=== PATIENT | female | born 1970 | race Caucasian/White ===

== ENCOUNTER → 2017-02-01 | Outpatient (CLI) | payer OTHER ==
[~2017-02-01] MED LIST: EFF375 PO; FLINSTONE VITAMINS PO; IBUP600T44 PO; OXYC-57 PO
== END | disposition home or self-care (01) ==
LOC: C.PAPS 13:41
PROVIDERS: ATTEND Obstetrics & Gynecology
DX: Z12.4 Encounter for screening for malignant neoplasm of cervix (principal)

== ENCOUNTER 2017-09-06 11:08 | Inpatient (IN) | payer OTHER ==
[~2017-09-06] VITALS: Ht 154.9 cm; Wt 98.2 kg
[2017-09-06] MEDS ORDERED: LIFI5DRO OP (12:04)
[2017-09-06] MEDS ORDERED: CLON0.5T3 PO (12:04)
[2017-09-06] MEDS ORDERED: FLUO10CA48 PO (12:04)
[2017-09-06] MEDS ORDERED: BUSP15TA70 PO (12:04)
[2017-09-06] MEDS ORDERED: LTHCR300 PO (12:04)
[2017-09-06 12:36] LABS: URINE APPEARANCE CLEAR (CLEAR); URINE BILIRUBIN NEG (NEG); URINE COLOR YELLOW; URINE NITRITE NEG (NEG); URINE PH 7.5 (4.5-7.5); URINE SPECIFIC GRAVITY 1.007 (1.000-1.030); UROBILINOGEN NEG (NEG)
[2017-09-06 12:41] LABS: MANUAL MICROSCOPIC REQUIRED? NO; REVIEW REQ? NO
[2017-09-06 12:57] LABS: BENZODIAZEPINE, URINE NEG (NEG); COCAINE,URINE NEG (NEG); PHENCYCLIDINE, URINE NEG (NEG)
[2017-09-06 13:08] LABS: BASO % 0.3 %; BASO ABS # 0.03 K/uL (0-0.2); COMPLETE YES; EOS % 1.4 %; HEMATOCRIT 42.6 % (37-47); IG% 0.3 %; LYMPH % 15.9 %; LYMPH ABS # 1.83 K/uL (1.2-3.4); MEAN CELL VOLUME 92.4 fL (80-100); MEAN CORPUSCULAR HEMOGLOBIN 30.2 pg (25-34); MEAN CORPUSCULAR HGB CONC 32.6 g/dl (32-36); MEAN PLATELET VOLUME 9.6 fL (7.4-10.4); MONO % 3.7 %; NEUT % 78.4 %; PLATELET COUNT 366 K/uL (130-400); RED BLOOD COUNT 4.61 M/uL (4.2-5.4); WHITE BLOOD COUNT 11.51 K/uL (4.8-10.8)
[2017-09-06 13:16] LABS: BUN/CREATININE RATIO 10.5 (10-20); CREATININE 0.9 mg/dl (0.60-1.20)
[2017-09-06 13:27] LABS: THYROID STIMULATING HORMONE 4.71 uIu/ml (0.300-4.500)
[2017-09-06 14:13] VITALS: O2SAT 98
[2017-09-06] MEDS ORDERED: LITH1TAB PO (16:32)
[2017-09-06] MEDS ORDERED: MAGNESIUM HYDROXIDE SUSP 30 ML UDC PO PRN (16:45)
[2017-09-06] MEDS ORDERED: ALUMINUM/MAGNESIUM SUSP 30 ML UDC PO PRN (16:45)
[2017-09-06] MEDS ORDERED: CLONAZEPAM 0.5 MG TAB PO PRN (16:45)
[2017-09-06] MEDS ORDERED: SODIUM CHLORIDE 0.65% NA SOLN 45 ML (OCEAN) PRN (16:45)
[2017-09-06] MEDS ORDERED: hydrOXYzine HCL 25 MG TAB PO PRN ×2 (16:45)
[2017-09-06] MEDS ORDERED: BISMUTH SUBSALICYLATE PER ML OMNICELL CHARGE PO PRN (16:45)
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
[2017-09-06 17:47] VITALS: BP 140/87; PULSE 68; TEMP 37; Ht 154.9 cm; Wt 98.2 kg
[2017-09-06] MEDS ORDERED: NURSING VERBAL MED ORDER ONE (18:15)
[2017-09-06] MEDS: LIFITEGRAST OP SCH (20:59)
[2017-09-06] MEDS: BusPIRone 15 MG TAB PO SCH (21:02)
[2017-09-06] MEDS: LITHIUM CARBONATE 450 MG TABCR PO SCH (21:02)
[2017-09-06] MEDS ORDERED: NURSING DECISION MEDICATION ORDER SCH (21:15)
[2017-09-06] MEDS: NITROFURANTOIN MONOHYDRATE 100 MG CAP PO SCH (22:18)
[2017-09-07 06:43] VITALS: BP_SYST 115; BP_SYST 123; BP_DIAS 74; BP_DIAS 79; PULSE 61; PULSE 64; TEMP 36.8
[2017-09-07] MEDS: BusPIRone 15 MG TAB PO SCH ×2 (09:38→21:22)
[2017-09-07] MEDS: LITHIUM CARBONATE 450 MG TABCR PO SCH ×2 (09:39→21:22)
[2017-09-07] MEDS: NITROFURANTOIN MONOHYDRATE 100 MG CAP PO SCH ×2 (09:39→21:22)
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
[2017-09-07] MEDS: LIFITEGRAST OP SCH ×2 (12:42→21:20)
[2017-09-07] MEDS: ACETAMINOPHEN 325 MG TAB PO PRN ×2 (15:39→21:23)
[2017-09-07] MEDS: CLONAZEPAM 0.5 MG TAB PO PRN (21:25)
[2017-09-08 06:58] VITALS: BP 110/69; PULSE 67; TEMP 36.9
[2017-09-08] MEDS: LITHIUM CARBONATE 450 MG TABCR PO SCH ×2 (07:52→21:42)
[2017-09-08] MEDS: BusPIRone 15 MG TAB PO SCH ×2 (07:52→21:42)
[2017-09-08] MEDS: LIFITEGRAST OP SCH ×2 (07:52→21:42)
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
[2017-09-08] MEDS: CLONAZEPAM 0.5 MG TAB PO PRN (09:47)
[2017-09-08] MEDS: ACETAMINOPHEN 325 MG TAB PO PRN (13:25)
[2017-09-08] MEDS ORDERED: LURASIDONE HCL 40 MG TAB PO SCH (17:30)
[2017-09-09 06:33] VITALS: BP_SYST 115; BP_SYST 118; BP_DIAS 74; BP_DIAS 75; PULSE 61; PULSE 66; TEMP 36.6
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
[2017-09-09 08:04] LABS: CHOLESTEROL/HDL RATIO 4.3
[2017-09-09] MEDS: LITHIUM CARBONATE 450 MG TABCR PO SCH (08:22)
[2017-09-09] MEDS: BusPIRone 15 MG TAB PO SCH (08:22)
[2017-09-09] MEDS: LIFITEGRAST OP SCH (08:23)
[2017-09-09] MEDS ORDERED: LTD40 PO (10:26)
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
== END 2017-09-09 11:50 | disposition home or self-care (01) | DRG 885 ==
LOC: C.EDB 11:15 → C.MHU 17:20
PROVIDERS: ADMIT Psychiatry & Neurology Psychiatry; ATTEND Psychiatry & Neurology Psychiatry
DX: F32.81 Premenstrual dysphoric disorder (principal); R45.851 Suicidal ideations; N39.0 Urinary tract infection, site not specified; F31.81 Bipolar II disorder; Z87.891 Personal history of nicotine dependence; Z81.8 Family history of other mental and behavioral disorders; Z79.899 Other long term (current) drug therapy

== ENCOUNTER → 2017-09-28 | Outpatient (CLI) | payer OTHER ==
[~2017-09-28] MED LIST changes: +BUSP15TA70 PO; +CLON0.5T3 PO; -EFF375 PO; -FLINSTONE VITAMINS PO; -IBUP600T44 PO; +LIFI5DRO OP; +LITH1TAB PO; +LTD40 PO; -OXYC-57 PO
--- NOTE | 2017-09-29 07:43 | MAMMOGRAPHY REPORT ---
BILATERAL DIGITAL SCREENING MAMMOGRAM TOMOSYNTHESIS WITH CAD: 09/28/2017 CLINICAL HISTORY: Routine screening. Patient has no complaints. TECHNIQUE: Breast tomosynthesis in addition to standard 2D mammography was performed. Current study was also evaluated with a Computer Aided Detection (CAD) system. COMPARISON: Comparison is made to exams dated: 09/21/2016 mammogram, 09/16/2015 mammogram, 09/12/2014 mammogram, 06/20/2013 mammogram, 12/08/2012 mammogram, and 11/28/2012 mammogram - [facility] enter. BREAST COMPOSITION: The tissue of both breasts is heterogeneously dense, which may obscure small mas ses. FINDINGS: There is decreased asymmetry in the left breast along the posterior nipple line on the CC v iew. No new suspicious mass, architectural distortion or cluster of microcalcifications is seen. IMPRESSION: ACR BI-RADS CATEGORY 1: NEGATIVE There is no mammographic evidence of malignancy. A 1 year screening mammogram is recommended. The pa tient will receive written notification of the results. Approximately 10% of breast cancers are not detected with mammography. A negative mammographic report should not delay biopsy if a clinically suggestive mass is present. Bety Trevino M.D. ay/:09/28/2017 16:07:40 [employer] De[employer]: Becca GALARZA(Tommy)(Fritz)(BD), [facility] letter sent: Normal 1/2 BI-RADS Code: ACR BI-RADS Category 1: Negative
== END | disposition home or self-care (01) ==
LOC: C.MAMM 09:37
PROVIDERS: ATTEND Obstetrics & Gynecology
DX: Z12.31 Encounter for screening mammogram for malignant neoplasm of breast (principal)

== ENCOUNTER → 2018-02-07 | Outpatient (CLI) | payer OTHER | END | disposition home or self-care (01) | LOC: C.PAPS 14:17 | PROVIDERS: ATTEND Obstetrics & Gynecology | DX: Z12.4 Encounter for screening for malignant neoplasm of cervix (principal) ==